=== PATIENT | female | born 1980 | race Caucasian/White ===

== ENCOUNTER 2022-09-09 15:00 | Outpatient (CLI) | payer BC, SELFPAY ==
--- NOTE | 2022-09-09 15:00 | CRLHL7_ITS ---
For Patients: As a result of the Century Cures Act, medical imaging exams and procedure reports are released immediately into your electronic medical record. You may view this report before your referring provider. If you have questions, please contact your health care provider. INDICATION: menorrhagia/dysmenorrhea COMPARISON: 10/07/2017 TECHNIQUE: 2D whyte scale and color Doppler images were acquired of the pelvis using a transabdominal and transvaginal approach. FINDINGS: Exophytic left posterior fundal fibroid measuring 2.5 x 2.5 x 2.1 cm. Right anterior fundal fibroid is present which extends to the endometrium measuring 3.4 x 3.2 x 3.2 cm. Uterus measures 10.5 cm in length by 6.3 cm in AP diameter by 5.8 cm in transverse dimension. The myometrium has a heterogeneous echotexture. Postprocedural changes to the endometrium which is ill-defined and measures approximately 1 cm. Multiple cervical nabothian cysts again noted. The right ovary measures 2.0 x 1.6 x 1.3 cm in size and the left ovary measures 3.5 x 1.6 x 3.3 cm. The ovaries demonstrate normal arterial and venous blood flow on color Doppler analysis. There are no suspicious fluid collections within the cul-de-sac. IMPRESSION: Right anterior fundal fibroid measuring 3.4 cm which extends to the right fundal endometrium. The adjacent endometrium is ill-defined and heterogeneous measuring approximately 1 cm. Exophytic left posterior fundal uterine fibroid measuring 2.5 cm. Dictated by Federico Lion MD @ 09/10/2022 9:45:08 AM (Electronically Signed)
== END 2022-09-09 15:01 | disposition home or self-care (01) ==
LOC: US 15:01
PROVIDERS: Visit Provider Registered Nurse
DX: N92.0 Excessive and frequent menstruation with regular cycle (principal); N94.6 Dysmenorrhea, unspecified; D25.9 Leiomyoma of uterus, unspecified
CPT/HCPCS: 76830; 76856; 84443